=== PATIENT | male | born 1945 | race Caucasian/White ===

== ENCOUNTER 2017-08-06 15:55 | Emergency (ER) | payer MEDICARE, BC ==
--- NOTE | 2017-08-06 17:37 | EDM.PDOC ---
ED HPI GENERAL MEDICAL PROBLEM - General Chief Complaint: Upper Extremity Injury/Pain Stated Complaint: JAMMED RT MIDDLE FINGER Time Seen by Provider: 08/06/17 17:33 Source of Information: Reports: Patient, RN Notes Reviewed History Limitations: Reports: No Limitations - History of Present Illness INITIAL COMMENTS - FREE TEXT/NARRATIVE: 71-year-old gentleman presents emergency department following an injury to his middle finger right hand he jammed this 4 days ago he cannot extend the DIP - Related Data Allergies Allergy/AdvReac Type Severity Reaction Status Date / Time No Known Allergies Allergy Verified 08/06/17 17:19 Home Meds: Home Meds Lisinopril 10 mg PO DAILY 08/06/17 [History] Metoprolol Tartrate 25 mg PO BID 08/06/17 [History] Simvastatin [Zocor] 80 mg PO BEDTIME 08/06/17 [History] Tamsulosin [Tamsulosin 24 Hr] 0.4 mg PO DAILY 08/06/17 [History] Past Medical History HEENT History: Reports: Impaired Vision Cardiovascular History: Reports: CAD, Hypertension, Stents Genitourinary History: Reports: BPH Oncologic (Cancer) History: Reports: Other (See Below) Other Oncologic History: unknown skin Dermatologic History: Reports: Melanoma - Past Surgical History Musculoskeletal Surgical History: Reports: Knee Replacement Dermatological Surgical History: Reports: Other (See Below) Social & Family History - Tobacco Use Smoking Status *Q: Never Smoker - Caffeine Use Caffeine Use: Reports: Coffee - Recreational Drug Use Recreational Drug Use: No Review of Systems - Review of Systems Review Of Systems: See Below Constitutional: Reports: No Symptoms Musculoskeletal: Reports: Other (Cannot extend the finger) ED EXAM, GENERAL - Physical Exam Exam: See Below Free Text/Narrative:: Examination of the right hand he has full range of motion of all digits except for the DIP digit #3 right hand cannot be fully extended radial pulse is +2 no pain with palpation Exam Limited By: No Limitations General Appearance: Alert, WD/WN, No Apparent Distress Course - Vital Signs Last Recorded V/S: Last Vital Signs Temp 97.4 F 08/06/17 17:31 Pulse 70 08/06/17 17:31 Resp 15 08/06/17 17:31 BP 105/61 08/06/17 17:31 Pulse Ox 100 08/06/17 17:31 - Orders/Labs/Meds Orders: Active Orders 24 hr Category Date Time Status Fingers Third Digit Rt F7 [CR] Stat Exams 08/06/17 17:35 Taken Departure - Departure Time of Disposition: 18:13 Disposition: Home, Self-Care 01 Condition: Good Clinical Impression: Mallet deformity of right middle finger - Discharge Information Referrals: PCP,None [Primary Care Provider] - Forms: ED Department Discharge Additional Instructions: Try pamela taping her fingers for support, please follow-up with orthopedics at your appointment time - My Orders Last 24 Hours: My Active Orders 08/06/17 17:35 Fingers Third Digit Rt F7 [CR] Stat - Assessment/Plan Last 24 Hours: My Active Orders 08/06/17 17:35 Fingers Third Digit Rt F7 [CR] Stat Plan: Assessment Acuity = acute Site and laterality = mild finger digit #3 right hand Etiology = secondary to trauma Manifestations = none Location of injury = Home Lab values = x-ray shows no fracture official read radiology is pending Plan Call discussed case Dr. Estrada orthopedics he agreed to evaluate him in clinic finger will be pamela taped follow-up clinic tomorrow potential referral to hand surgery for repair This note was dictated using [employer] voice recognition software please call with any questions on syntax or grammar.
--- NOTE | 2017-08-07 09:16 | CR ---
Fingers Third Digit Rt F7 INDICATION: trauma COMPARISON: None FINDINGS: 3 views. No fracture, dislocation, or other acute bony abnormality. No joint space narr owing. DIP joint is held in flexion. Correlate clinically.
== END 2017-08-06 18:35 | disposition home or self-care (01) ==
LOC: JP.ED 15:55
DX: M20.011 Mallet finger of right finger(s) (principal); I10 Essential (primary) hypertension; Z79.899 Other long term (current) drug therapy
CPT/HCPCS: 73140-26-F7; 73140-F7; 99284

== ENCOUNTER 2020-09-23 11:31 | Emergency (ER) | payer BC, MEDICARE ==
--- NOTE | 2020-09-23 11:54 | EDM.PDOC ---
ED HPI GENERAL MEDICAL PROBLEM - General Chief Complaint: Lower Extremity Injury/Pain Stated Complaint: EXTREME PAIN IN RIGHT KNEE, NO WEIGHT ON KNEE Time Seen by Provider: 09/23/20 11:54 Source of Information: Reports: Patient, RN Notes Reviewed History Limitations: Reports: No Limitations - History of Present Illness INITIAL COMMENTS - FREE TEXT/NARRATIVE: Jenaro presents today for complaints of acute onset right knee pain without recent injury or trauma. He reports onset of pain yesterday with ambulation. He states the pain became so bad that he was not able to walk. Jenaro reports the pain gets much better when laying down. He describes pain as aching and sharp. He denies any numbness, tingling to the right leg. He denies fever, chills, headache, nausea, vomiting, diarrhea or other concerns. He reports two glasses of wine in the evenings. Right TKA 14 years ago with [facility]. Provider is Dr. Gonzales. Jenaro states he telephoned Dr. Gonzales's office and was instructed to present to the clinic for an x-ray and have it pushed to them for review. - Related Data Allergies Allergy/AdvReac Type Severity Reaction Status Date / Time No Known Allergies Allergy Verified 09/23/20 11:52 Home Meds: Home Meds Lisinopril 10 mg PO DAILY 08/06/17 [History] Metoprolol Tartrate 25 mg PO BID 08/06/17 [History] Simvastatin [Zocor] 80 mg PO BEDTIME 08/06/17 [History] Tamsulosin [Tamsulosin 24 Hr] 0.4 mg PO DAILY 08/06/17 [History] Finasteride 1 tab PO DAILY 09/23/20 [History] Hydrocodone/Acetaminophen [Hydrocodon-Acetaminoph 7.5-325] 1 tab PO TID PRN 09/23/20 [History] Past Medical History HEENT History: Reports: Impaired Vision Cardiovascular History: Reports: CAD, Hypertension, Stents Genitourinary History: Reports: BPH Oncologic (Cancer) History: Reports: Other (See Below) Other Oncologic History: unknown skin Dermatologic History: Reports: Melanoma - Past Surgical History Musculoskeletal Surgical History: Reports: Knee Replacement Dermatological Surgical History: Reports: Other (See Below) Social & Family History - Caffeine Use Caffeine Use: Reports: Coffee Review of Systems - Review of Systems Review Of Systems: See Below Constitutional: Reports: No Symptoms Eyes: Reports: No Symptoms Ears: Reports: No Symptoms Nose: Reports: No Symptoms Mouth/Throat: Reports: No Symptoms Respiratory: Reports: No Symptoms Cardiovascular: Reports: No Symptoms GI/Abdominal: Reports: No Symptoms Genitourinary: Reports: No Symptoms Musculoskeletal: Reports: Other (right knee pain for 24 hours, acute onset without injury/trauma) Skin: Reports: Other (warmth over right knee with edema). Denies: Bruising, Rash, Erythema, Change in Color Neurological: Reports: No Symptoms Psychiatric: Reports: No Symptoms ED EXAM, GENERAL - Physical Exam Exam: See Below Exam Limited By: No Limitations General Appearance: Alert, WD/WN, Mild Distress Head: Atraumatic, Normocephalic Respiratory/Chest: No Respiratory Distress, Lungs Clear, Normal Breath Sounds, No Accessory Muscle Use, Chest Non-Tender. No: Crackles, Rales, Rhonchi, Whe ezing Cardiovascular: Normal Peripheral Pulses, Regular Rate, Rhythm, No Edema, No Gallop, No Murmur, No Rub Peripheral Pulses: 4+: Radial (L), Radial (R), Popliteal (L), Popliteal (R), Dorsalis Pedis (L), Dorsalis Pedis (R) Back Exam: Normal Inspection, Full Range of Motion. No: CVA Tenderness (R), CVA Tenderness (L) Extremities: No Pedal Edema, Normal Capillary Refill, Joint Swelling (right knee edema, warm touch without erythema), Limited Range of Motion (right knee due to pain, not able to flex). No: Redness Neurological: Alert, Oriented, Normal Cognition, Normal Gait, No Motor/Sensory Deficits Psychiatric: Normal Affect, Normal Mood Skin Exam: Warm, Dry, Intact, Normal Color, No Rash, Increased Warmth (right knee). No: Erythema Lymphatic: No Adenopathy Course - Vital Signs Last Recorded V/S: Last Vital Signs Temp 36.4 C 09/23/20 11:59 Pulse 72 09/23/20 11:59 Resp 16 09/23/20 11:59 BP 113/56 L 09/23/20 11:59 Pulse Ox 96 09/23/20 11:59 - Orders/Labs/Meds Orders: Active Orders 24 hr Category Date Time Status Consult to Orthopedics [CONS] Routine Cons 09/23/20 14:00 Ordered Knee 3V Rt [CR] Stat Exams 09/23/20 12:10 Taken Labs: Laboratory Tests 09/23/20 09/23/20 Range/Units 12:27 12:27 WBC 14.7 H (4.5-11.0) K/uL RBC 4.27 L (4.30-5.90) M/uL Hgb 14.4 (12.0-15.0) g/dL Hct 41.8 (40.0-54.0) % MCV 98 (80-98) fL MCH 34 H (27-31) pg MCHC 34 (32-36) % Plt Count 34 L (150-400) K/uL Neut % (Auto) 75.9 H (36-66) % Lymph % (Auto) 11.2 L (24-44) % [place] % (Auto) 12.1 H (2-6) % Eos % (Auto) 0.5 L (2-4) % Baso % (Auto) 0.3 (0-1) % ESR 27 H (0-20) mm/hr Sodium 135 L (140-148) mmol/L Potassium 3.9 (3.6-5.2) mmol/L Chloride 97 L (100-108) mmol/L Carbon Dioxide 28 (21-32) mmol/L Anion Gap 13.9 (5.0-14.0) mmol/L BUN 43 H (7-18) mg/dL Creatinine 1.4 H (0.8-1.3) mg/dL Est Cr Clr Drug Dosing 45.59 mL/min Estimated GFR (MDRD) 49 L (>60) Glucose 118 H (74-106) mg/dL Calcium 8.9 (8.5-10.1) mg/dL C-Reactive Protein 16.21 H (0.0-0.3) mg/dL Patient lab work reviewed, noted leukocytosis, WBC 14.7, neutrophils 75.9, CRP 16.21. [facility] investigations chief notified, Message left for Dr. Moran to call us back. - Radiology Interpretation Free Text/Narrative:: Right knee x-ray reviewed, wet read no acute fractures noted, concern for possible effusion. Radiologist read pending. - Re-Assessments/Exams Free Text/Narrative Re-Assessment/Exam: [facility] orthopedic Dr. Moran advised no use of antibiotics until a knee tap has been completed. Dr. Moran advises [facility] Vital signs stable, patient can be discharged to home, take medication for pain and follow up on Friday for knee tap. He needs to return for worsening. Patient advised of Dr. Moran suggestion, he is in agreement with plan. Jenaro states he would rather follow up here at [facility] and not travel to the [facility] [place]. Referral placed for Dr. Perez. 09/24/20 01:32 Departure - Departure Time of Disposition: 13:57 Disposition: Home, Self-Care 01 Condition: Good Clinical Impression: Knee pain, right, Bursitis - Discharge Information *PRESCRIPTION DRUG MONITORING PROGRAM REVIEWED*: No *COPY OF PRESCRIPTION DRUG MONITORING REPORT IN PATIENT QUOC: No Instructions: Cellulitis, Adult, [id number] Referrals: RADHA GONZALES [Other] Forms: ED Department Discharge Additional Instructions: You have been evaluated and treated for right knee pain with edema, elevated WBC, CRP. [facility] contacted, they would like you to NOT take antibiotics at this time. Watch the knee, return for orthopedic evaluation and knee tap on Friday. Take your hydrocodone as directed for pain (home supply). Stay hydrated. Use crutches for ambulation to help decrease pain. Rest, elevate the leg and ice for pain/edema. Return for worsening, issues or concerns. Follow up with Dr. Goode on Friday at [facility] for an appointment. [phone] - My Orders Last 24 Hours: My Active Orders 09/23/20 12:10 Knee 3V Rt [CR] Stat 09/23/20 14:00 Consult to Orthopedics [CONS] Routine - Assessment/Plan Last 24 Hours: My Active Orders 09/23/20 12:10 Knee 3V Rt [CR] Stat 09/23/20 14:00 Consult to Orthopedics [CONS] Routine
--- NOTE | 2020-09-25 09:23 | CR ---
Knee 3V Rt CLINICAL HISTORY: Pain and swelling FINDINGS: Patient has a 3 component total knee arthroplasty. Components appear well seated. No acute fracture or dislocation is noted. There are no osseous lesions. There may be a small joint effusion. Impression: Total knee arthroplasty appears intact. Possible small effusion
== END 2020-09-23 14:39 | disposition home or self-care (01) ==
LOC: JP.ED 11:31
DX: M70.51 Other bursitis of knee, right knee (principal); I25.10 Atherosclerotic heart disease of native coronary artery without angina pectoris; E78.00 Pure hypercholesterolemia, unspecified; I10 Essential (primary) hypertension; Z79.899 Other long term (current) drug therapy
CPT/HCPCS: 36415; 73562-26-RT; 73562-RT; 80048; 85025; 85651; 86140; 99283-25

== ENCOUNTER 2024-11-06 14:07 | Emergency (ER) | payer MEDICARE | END 2024-11-06 17:08 | disposition home or self-care (01) | LOC: JP.ED 14:07 | DX: J40 Bronchitis, not specified as acute or chronic (principal); I10 Essential (primary) hypertension; I25.10 Atherosclerotic heart disease of native coronary artery without angina pectoris; Z95.5 Presence of coronary angioplasty implant and graft; Z79.899 Other long term (current) drug therapy | CPT/HCPCS: 71046; 71046-26; 99284 ==